=== PATIENT | female | born 1950 | race African-American/Black ===

== ENCOUNTER 2025-04-08 14:57 | Outpatient (AMB) | payer MEDICARE, MEDICAID, SELFPAY ==
--- NOTE | 2025-04-08 15:06 | A.PHYSOV_ITS ---
Vital Signs 04/08/25 15:07 Height 5 ft 2 in Weight 194 lb BMI 35.5 Intake Visit Reasons: eval for left hip injection Intake Note: Patient is a 74 year old female in office today for a left hip injection evaluation. Bankruptcy Assistant Required: No Allergies atorvastatin (From Lipitor) Allergy (Unknown, Verified 04/08/25 15:08) Unknown ezetimibe (From Zetia) Allergy (Unknown, Verified 04/08/25 15:08) Unknown naproxen (From Naprosyn) Allergy (Unknown, Verified 04/08/25 15:08) Unknown simvastatin Allergy (Unknown, Verified 04/08/25 15:08) Unknown HPI Comments Details: History of Present Illness The patient is a 74 year old female presenting with right hip pain. She has a history of a right hip replacement. The current pain began suddenly and is located in her left groin, radiating to the middle of her back and down her leg. She states the pain feels like it is coming from the hip, not sciatica. The pain has been severe enough to cause her to cry and feel aggravated, and she notes it was particularly difficult over Thanksgiving. Past surgical history is also significant for back surgery, after which she had a sudden onset of shock-like pain prior to another procedure. She denies any history of diabetes. She has a pain level today of 7/10. Pain Description - Onset: The pain began suddenly. - Location: The pain is in the right groin. - Radiation: The pain radiates to the middle of the back and down the leg. - Quality: The patient believes it is a hip-related pain, not sciatica. - Severity: The patient reports being in a lot of pain, to the point of crying. - Exacerbating Factors: Pain is worsened with passive movement of the hip joint. - Associated Symptoms: The pain causes her to become aggravated. FORMERLY [facility], [facility]1983 Medical History (Updated 04/08/25 @ 15:20 by MARI Ramirez) Chronic pain syndrome Surgical History History of knee replacement History of hip replacement History of carpal tunnel surgery History of History of back surgery Social History Alcohol intake: current Alcohol intake frequency: does not drink Patient Tobacco Use Status: Never used Tobacco Use of substances other than those prescribed or required for medical reasons: No service: No Review of Systems Narrative Review of Systems - Musculoskeletal: Reports sudden onset of severe right groin pain which radiates to the mid-back and down the leg. - Endocrine: Denies diabetes. - Psychological: Reports feeling aggravated and distressed from her pain. Physical Exam Exam Exam: Physical Exam Lumbar Spine: Examination of the lumbar spine, there is no visible swelling or deformity. She is tender to lower left lumbar facets. She is otherwise non tender. She has limited range of motion and extension. Special Tests: Lhermittes sign was negative Heel Toe walk is normal Left straight leg raise: Negative Right straight leg raise: Negative Special tests Tiffanie test is negative Ganslen's test is negative SI Joint compression test negative Mera test negative Piriformis stretch is negative Lower Extremities: She has limited range of motion of her left hip and external rotation and abduction. Her pain is reproducible with hip range of motion. Neuro: Sensation: Intact to lower extremities bilaterally Strength L2 (Psoas): 5/5 on the left and 5/5 on the right. L3 (Quads): 5/5 on the left and 5/5 on the right. L4 (Ant tibialis): 5/5 on the left and 5/5 on the right. L5 (EHL) 5/5 on the left and 5/5 on the right. S1 (Gastroc): 5/5 on the left and 5/5 on the right. DTR L4: (Patellar) Left 1 Right 1 S1: (Achilles) Left 1 Right 1 Babinski Downgoing No pathologic clonus. No involuntary movement. Vital Signs: BMI result Body Mass Index 35.5 Assessment & Plan Assessment & Plan (1) Osteoarthritis of left hip: Code(s): M16.12 - Unilateral primary osteoarthritis, left hip Category: Medical Qualifiers: Osteoarthritis type: primary Qualified Code(s): M16.12 - Unilateral primary osteoarthritis, left hip Plan Pain Management - Affect: The patient reports feeling aggravated and was crying due to the severity of the pain. - Activities of Daily Living: The patient reports her pain was severe through the . Plan Patient was informed and verbally consented to the use of an ambient scribe for clinic note documentation during this visit. 1. Left Hip Pain The patient presents with severe right hip pain, which is reproducible on physical exam with passive movement, localizing to the groin. While sciatica is a consideration, the current clinical picture is more consistent with hip joint arthritis. An x-ray of the left hip will be ordered for today to confirm the presence of arthritis, which will also facilitate insurance approval for an injection. A prescription for prednisone will be sent to her pharmacy to decrease inflammation and manage her pain until further intervention is possible. A left hip injection will be ordered to be performed by Dr. Hook, and the patient was advised this process could take one to two weeks for scheduling and insurance approval. Discussion Notes I explained to the patient that her symptoms, particularly the groin pain reproduced on exam, are highly suggestive of a hip joint issue like arthritis. I advised that we would order an x-ray of the hip for today to confirm this diagnosis and help with insurance authorization for an injection. To provide some relief in the interim, I recommended a course of prednisone to reduce inflammation, and she was agreeable. I informed her that I would place an order for a right hip injection with Dr. Lyons, but it would likely take a week or two to get scheduled due to insurance and scheduling logistics, which she understood. Patient Instructions - Please go to a [facility] facility, such as [facility] on [facility] or the [facility], to have an x-ray of your right hip taken today. - A prescription for prednisone, a steroid to help reduce swelling and pain, will be sent to your pharmacy. - We are ordering a right hip injection for you. - Please be aware that scheduling the injection can take 1-2 weeks as we need to get approval from your insurance. Orders: Orders XR hip LT min 2V Today M16.10 - Unilateral primary osteoarthritis, unspecified hip Medications: New prednisone 3 tabs po for 3 days, 2 tabs po for 3 days, 1 tab po for 3 days 20 mg PO DAILY 18 tabs 0RF 9 days Coding Level of Care Code Tele Est Pt Level 4 (14671) Diagnoses Primary osteoarthritis of left hip M16.12 Osteoarthritis type: primary
[2025-04-08 15:07] VITALS: BMI 35.5
--- OUTSIDE RECORDS SUMMARY | 2025-04-08 15:53 | XMS_ITS | Encounter Summary ---
Author Organization [facility] [place] [address] Care Team Providers Care Superintendent Marine Name Role Phone Anastasia Yost MD Primary Care Provider [phone] Encounter Details Date Type Department Care Team (Latest Contact Info) Description 04/08/2025 3:53 PM [facility] Hospital Encounter [facility] Xray [address] [place] [address] Unilateral primary osteoarthritis, unspecified hip Social History Tobacco Use Types Packs/Day Years Used Date Smoking Tobacco: Never Smokeless Tobacco: Never Alcohol Use Standard Drinks/Week Comments No 0 (1 standard drink = 0.6 oz pur e alcohol) Housing Instability Answer Date Recorde d Are you worried that in the next 2 months you may not have stable housing? No 11/27/2024 Food Access & Nutrition Answer Date Rec orded Do you have access to a vari ety of food including fruits and vegetables? Yes 11/27/2024 Access to Healthcare Answer Date Record ed Within the last 3 months, ho w many times did you visit the emergency department for your medical care? 0 11/27/2024 Health Literacy Answer Date Recorded How often do you need to hav e someone help you when you read instructions, pamphlets, or other written material from your doctor or pharmacy? Never 11/27/2024 Caregiver: How often do you need to have someone help you when you read instructions, pamphlets, or other written material from your doctor or pharmacy? Not on file 11/27/2024 Financial Risk Answer Date Recorded How hard is it for you to pa y for the very basics like food, housing, medical care, and air conditioning / heating? Not very hard 11/27/2024 Transportation Answer Date Recorded Has the lack of transportati on kept you from meetings, work, or from getting things needed for daily living? No Has the lack of transportati on kept you from medical appointments or from getting medications? No 11/27/2024 Food Risk Answer Date Recorded Within the past 12 months we worried whether our food would run out before we got money to buy more. Never true 11/27/2024 Within the past 12 months th e food we bought just didn't last and we didn't have money to get more. Never true 11/27/2024 Dependent Care Answer Date Recorded Do you need help finding or paying for care for your loved ones. For example, child care team lead or elderly care for an older adult? No 11/27/2024 Education Answer Date Recorded Do you think completing more education or training, like finishing a GED, going to college, or learning a trade, would be helpful for you? N/A 11/27/2024 Employment and Income Answer Date Recor ded During the last four weeks, have you been actively looking for work? No 11/27/2024 Living Situation Answer Date Recorded What is your living situation? Unrecognized valu e 11/27/2024 Comments Unknown Sex and Gender Information Value Date Recorded Sex Assigned at Not on file Legal Sex Female 6:13 AM EST Gender Identity Not on file Sexual Orientation Not on file documented as of this encounter Plan of Treatment Upcoming Encounters Date Type Department Care Team (Late st Contact Info) Description 05/20/2025 10:00 AM EST Office Visit Obstetrics [facility]necology [facility] [place] [address] [place] [address] Jeaneth Medina CNM [address] [place] [phone] 05/30/2025 10:00 AM EST Office Visit Adult Medicine [address] [phone] Krystin Maldonado PA [address] [place] [phone] 07/22/2025 1:15 PM EDT Office Visit Bariatric Surgery - [place] [address] [place] [phone] Ariana Cameron MD [address] [place] [phone] 12/22/2025 1:20 PM EDT Office Visit Gastroenterology - [address] [place] [phone] Bárbara Castillo PA [address] [place] [address] documented as of this encounter Procedures Procedure Name Priority Date/Time Associated Diagnosis Comments XR HIP 2-3 VIEWS LEFT Routine 04/08/2025 3:59 PM EST Unilateral primary osteoarthritis, unspecified hip documented in this encounter Results * XR Hip 2-3 Views Left (04/08/2025 3:59 PM EST) Anatomical Region Laterality Modality Lower Extremities, Hip Left Radiograp hic Imaging 04/08/2025 4:14 PM EST Impressions 04/08/2025 4:16 PM EST Impression: Mild arthritic changes in the left hip, without significant change. Telenette GUERRA ([id number]) -------- FINAL REPORT -------- Dictated By: Tracy Hunter Dictated Date: 04/08/2025 16:14 ET Assigned Physician: Tracy Hunter Reviewed and Electronically Signed By: Tracy Hunter Signed Date: 04/08/2025 16:16 ET Workstation ID: [id number] Transcribed By: Self Edit Transcribed Date: 04/08/2025 16:14 ET Narrative 04/08/2025 4:16 PM EST History: Left hip pain. No known trauma. Comparison: Right hip series 02/06/21 Findings: An AP view of the pelvis to include both hips and AP and frog-leg lateral views of the left hip are submitted. There is mild loss of cartilage space in the left hip, with minimal osteophyte formation along the base of the femoral head, without significant change. No fracture or osseous destructive lesion is identified. A right total hip prosthesis is partially imaged, new from the previous study. The pelvic bones are intact. The sacroiliac joints are well-maintained. Discectomy and fusion sequela are noted in the lower lumbar spine, with stable appearance of the fusion hardware. Procedure Note Tracy Hunter MD - 04/08/2025 History: Left hip pain. No known trauma. Comparison: Right hip series 02/06/21 Findings: An AP view of the pelvis to include both hips and AP and frog-leg lateralviews of the left hip are submitted. There is mild loss of cartilage space in the left hip, with minimalosteophyte formation along the base of the femoral head, withoutsignificant change. No fracture or osseous destructive lesion isidentified. A right total hip prosthesis is partially imaged, new from the previousstudy. The pelvic bones are intact. The sacroiliac joints arewell-maintained. Discectomy and fusion sequela are noted in the lower lumbar spine, withstable appearance of the fusion hardware. IMPRESSION: Impression: Mild arthritic changes in the left hip, without significant change. Dayday GUERRA ([id number]) -------- FINAL REPORT -------- Dictated By: Tracy Hunter Dictated Date: 04/08/2025 16:14 ET Assigned Physician: Tracy Hunter Reviewed and Electronically Signed By: Tracy Hunter Signed Date: 04/08/2025 16:16 ET Workstation ID: [id number] Transcribed By: Self Edit Transcribed Date: 04/08/2025 16:14 ET us Abisai GUERRA IMG XR PROCEDURES Final Result documented in this encounter Visit Diagnoses Diagnosis Unilateral primary osteoarthritis, unspecified hip documented in this encounter Additional Health Concerns Assessment Noted Time PHQ-9 Depression Total Score: 0 11/28/19 25 3:42 PM EDT A fall risk assessment has been complete d for the patient 11/27/2024 3:41 PM EDT documented as of this encounter Care Teams Superintendent Marine Relationship Specialty Start Date End Date Anastasia Yost MD [address] [place] [address] PCP - General 05/03/04 documented as of this encounter
--- OUTSIDE RECORDS SUMMARY | 2025-04-08 21:15 | XMS_ITS | Clinical Summary ---
Author Organization [facility] Prior to 09/28/24 Address [address] [place] [address] Support Name Relationship Address Phone Ochoa Pandey Emergency Contact [address] [place] [address] Care Team Providers Care Band Shover Name Role Phone Anastasia Yost MD Primary Care Provider [phone] Allergies Active Allergy Reactions Criticality Noted Date Comments Atorvastatin 01/10/2014 Other reaction(s): Myalgia and Joint Pain Ezetimibe 10/24/2014 Constipation, myalgias. Lisinopril 09/20/2013 cough Naproxen Itching Low 08/28/2006 Rosuvastatin 12/10/2014 Other reaction(s): Rash/Dermatitis Simvastatin 10/04/2013 Other reaction(s): Myalgia and Joint Pain Medications Medication Sig Dispensed Refills Start Date End Date Status CALCIUM CARBONATE-VITAMIN D PO Take 1,200 mg by mouth 2 (two) times a day. 0 Active Coenzyme Q10 100 MG capsule Take 100 mg by mouth daily. 0 Active DULoxetine (CYMBALTA) DR capsule 60 mg Take 1 capsule (60 mg total) by mouth daily. 0 12/15/2021 Active omeprazole (PriLOSEC) 20 MG capsule Take 1 capsule (20 mg total) by mouth daily. 0 12/22/2021 Active pravastatin (PRAVACHOL) tablet 10 mg Take 1 tablet (10 mg total) by mouth daily. 0 03/08/2022 Active losartan (COZAAR) tablet 50 mg Take 1 tablet (50 mg total) by mouth daily. 0 12/27/2021 Active acetaminophen (TYLENOL) 325 MG tablet Take 1 tablet (325 mg total) by mouth every 6 (six) hours as needed for pain. 0 Active hydrocortisone valerate (WEST-FRANCISCO) 0.2 % ointment Apply 1 application topically daily as needed. 0 Active Multiple Vitamins-Minerals (PRESERVISION AREDS 2 PO) Take 1 tablet by mouth 2 (two) times a day. 0 Active aspirin EC 81 MG EC tablet Take 1 tablet (81 mg total) by mouth 2 (two) times a day after meals. 80 tablet 0 04/22/2022 Active senna-docusate (PERICOLACE) 8.6-50 MG Take 1 tablet by mouth 2 (two) times a day. 12 tablet 0 04/22/2022 Active methocarbamol (ROBAXIN) 750 MG tablet Take 1 tablet (750 mg total) by mouth every 6 (six) hours as needed. 35 tablet 0 05/06/2022 Active oxyCODONE (ROXICODONE) 5 MG immediate release tablet Take 1 tablet (5 mg total) by mouth every 8 (eight) hours as needed. 10 tablet 0 05/17/2022 Active Active Problems No known active problems Immunizations Name Administration Dates Next Due Covid-19 (J&J) 05/11/2021 Family History Medical History Relation Name Comments Heart attack Brother 1 2 X1 Heart attack Brother 2 Early Father Heart attack Mother Heart disease Mother Hypertension Mother Heart attack Sister 1 3 X3 Relation Name Status Comments Brother 1 2 HALF- 65-UN[place] N; 50- [place] Brother 2 Alive Father (Age 57) [place] Mother (Age 65) [place] Sister 1 3 49- [place]; 62- [place]?; 70- [place]? Sister 2 Alive Social History Tobacco Use Types Packs/Day Years Used Date Smoking Tobacco: Never Smokeless Tobacco: Never Tobacco Cessation:Counseling Given: Not Answered Alcohol Use Standard Drinks/Week Comments Never 0 (1 standard drink = 0.6 oz pur e alcohol) Sex and Gender Information Value Date Recorded Sex Assigned at Female 03/31/2022 2:30 PM EST Gender Identity Female 03/31/2022 2:30 PM EST Sexual Orientation Not on file Job Start Date Occupation Industry Not on file Not on file Not on file Last Filed Vital Signs Vital Sign Reading Time Taken Comments Blood Pressure 106/70 04/22/2022 7:44 AM EST Pulse 82 04/22/2022 7:44 AM EST Temperature 36.6 C (97.8 F) 04/22/2022 7:44 AM EST Respiratory Rate 18 04/22/2022 7:44 AM EST Oxygen Saturation 95% 04/22/2022 7:44 AM EST Inhaled Oxygen Concentration - - Weight 87.5 kg (193 lb) 04/21/2022 9:16 AM EST Height 157.5 cm (5' 2 ) 04/21/2022 9:16 AM EST Body Mass Index 35.3 04/21/2022 9:16 AM EST Plan of Treatment Health Maintenance Due Date Last Done Comments Hepatitis C Screening 1950 Depression Screening 1963 BMI Counseling 08/02/1969 Preventative Health Evaluation 08/02/1969 Colon Cancer Screening (Colonoscopy) 08/02/1996 Breast Cancer Screening (Mammogram) 08/02/2001 Fall Risk Assessment 08/02/2016 Osteoporosis Screening (DEXA Scan) 08/02/2016 COVID-19 Vaccine ( season) 2024 09/20/2021, 05/11/2021, 07/06/2020 Influenza Vaccine (#1) 2024 , 01/15/2021, 01/13/2020, Additional history exists RSV Adult > 60+ Yrs or (1 - 1-dose 75+ series) 08/02/2026 DTap / Tdap / Td (3 - Td or Tdap) 12/30/2030 12/30/2020, 08/23/2010, 01/17/2005 Pneumococcal Vaccine Completed 01/16/2019, 10/06/19 17 Shingrix-Zoster Vaccine Completed 03/14/2020, 01/12 Hepatitis B Vaccines Aged Out No long er eligible based on patient's age to complete this topic RSV Ped < 20 months Aged Out No longe r eligible based on patient's age to complete this topic Medical Devices Implanted Type Area Pinking Machine Operator Device Identifier Shelf Expiration Date Model / Serial / Lot Size 5 Standard Tapered Stem Cementless Implanted:Qty: 1 on 04/21/2022 by Elias Hurley MD at [facility] Total Joint Right: Hip [id number] 03/26/2024 / / [id number] [employer] Delta Head 36mm Short -4 Mm Implanted:Qty: 1 on 04/21/2022 by Elias Hurley MD at [facility] and Med Total Joint Right: Hip [id number] 02/10/2027 / / [id number] Hip Shell Andree 3 Taper 50mm Clu Crng-Manu [id number] 129 - [id number] Implanted:Qty: 1 on 04/21/2022 by Elias Hurley MD at [facility] and Med Right: Hip [employer] 02/13/2027 321.03.35 0 / / [id number] Screw Andree 6.5x30mm Stry-Howm [id number] - [id number] Implanted:Qty: 1 on 04/21/2022 by Elias Hurley MD at [facility] and Med Right: Hip [employer] [id number] 03/07/2027 321.030 / / [id number] Screw Andree 6.5x20mm Crng-Manu [id number] - [id number] Implanted:Qty: 1 on 04/21/2022 by Elias Hurley MD at [facility] and Med Right: Hip [employer] [id number] 03/08/2027 321.020 / / [id number] Andree Liner Ecima 36mm Neutral Offset Taper Size 3 Implanted:Qty: 1 on 04/21/2022 by Elias Hurley MD at [facility] and Med Right: Hip [employer] 02/24/2027 322.03.63 6 / / [id number] Advance Directives For more information, please contact: [phone] Latest Code Status on File Code Status Date Activated Date Inactivated Comments Full Code 04/21/2022 10:49 AM 04/22/2022 6:00 PM Th is code status was ascertained in the following way: discussion with patient . Code Status History Code Status Date Activated Date Inactivated Comments Full Code 04/21/2022 9:30 AM 04/21/2022 10:49 AM Th is code status was ascertained in the following way: discussion with patient . Care Teams Band Shover Relationship Specialty Start Date End Date Anastaisa Yost MD PCP - General Internal Medicine 03/11/22
--- OUTSIDE RECORDS SUMMARY | 2025-04-08 21:15 | XMS_ITS | Clinical Summary ---
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 Lisinopril 09/20/2013 cough Naproxen Itching Low 08/28/2006 Rosuvastatin Rash 12/10/2014 Other reaction(s): Rash/Dermatitis Simvastatin Muscular Issues 10/04/2013 Other reaction(s): Myalgia and Joint Pain Medications aspirin 81 mg chewable tablet Chew 1 tablet (81 mg total) 1 (one) time each day. Active DULoxetine (CYMBALTA) [address] capsule Take 1 capsule (60 mg total) by mouth 1 (one) time each day. 0 Active coenzyme Q-10 100 mg capsule Take by mouth. Active calcium carb/vit D3/minerals (CALCIUM-VITAMIN D ORAL) Take 1,200 mg by mouth. Active omeprazole (PriLOSEC) [address] capsule Take 1 capsule (20 mg total) by mouth 2 (two) times a day before meals. 180 each 3 5 06/19/19 26 Active pravastatin (PRAVACHOL) 10 mg tablet Take 1 tablet (10 mg total) by mouth at bedtime. 90 tablet 1 5 Active hydrocortisone valerate (WEST-FRANCISCO) 0.2 % ointment Apply thin layer to webspaces QD PRN 45 g 2 5 Active losartan (COZAAR) 50 mg tablet Take 1 tablet (50 mg total) by mouth at bedtime. 90 tablet 1 5 Active tirzepatide, weight loss, (Zepbound) 2.5 mg/0.5 mL injectionIndicat ions:Class 2 obesity due to excess calories with body mass index (BMI) of 37.0 to 37.9 in adult, unspecified whether serious comorbidity present Inject 0.5 mL (2.5 mg total) under the skin every 7 (seven) days for 4 doses. 2 mL 5 03/14/20 25 Active Problems Problem Noted Date Diagnosed Date Hyperparathyroidism 05/31/2024 Assessment & Plan (11/27/2024 4:33 PM EDT): Orders: Basic metabolic panel; Future Ambulatory referral to Endocrinology; Future H/O iron deficiency anemia 02/13/2024 History of hip replacement 05/12/2022 Overview (07/09/2023): 04/21 right THR Severe obesity (BMI 35.0-39.9) with comorbidity 07/17/2019 Assessment & Plan (11/27/2024 4:33 PM EDT): Pure hypercholesterolemia 09/28/2018 Assessment & Plan (11/27/2024 4:33 PM EDT): Osteoporosis 08/15/2017 Overview (10/18/2024): 07/2017: T-score spine (-1.0); hip (-1.7); FRAX 4% 07/2020: T-score spine (-1.4); hip (-2.4); FRAX 5.4% 11/2022: T-score spine (-0.2); hip (-2.8) Assessment & Plan (11/27/2024 4:33 PM EDT): S/P total knee replacement 12/17/2015 Overview (10/18/2024): 11/13 right, left 2020 HTN (hypertension) 04/08/2013 Assessment & Plan (11/27/2024 4:33 PM EDT): Glaucoma 08/29/2011 Osteoarthrosis, localized, p rimary, involving lower leg, unspecified laterality 09/11/2009 Onychomycosis 08/31/2009 Spinal stenosis, lumbar sreekanth on, without neurogenic claudication 03/30/2009 Overview (10/18/2024): L4-5 moderate Esophageal reflux 06/29/2005 Assessment & Plan (11/27/2024 4:33 PM EDT): Nocturnal leg cramps 06/29/2005 Encounters Date Type Department Care Team Description 04/08/2025 3:53 PM EST Hospital Encounter [facility] Xray [address] [place] [address] Unilateral primary osteoarthritis, unspecified hip 03/01/2025 9:45 AM EDT Office Visit Walk-In Clinic - [facility] [address] [place] [phone] Yunior Craft NP Vaginal itching (Primary Dx); Hypoglycemia 02/20/2025 9:00 AM EDT Office Visit Bariatric Surgery [facility] [address] [facility] [address] [place] [address] Ariana Cameron MD Class 2 obesity due to excess calories with body mass index (BMI) of 37.0 to 37.9 in adult, unspecified whether serious comorbidity present (Primary Dx) 01/14/2025 Telephone Adult Medicine [address] [address] Anastasia Yost MD from Last 3 Months Immunizations Immunization Administration Dates Next Due COVID-19 (Moderna/Spikevax) 12yo and older 02/14/2023 Influenza trivalent, 0.5mL ( Fluzone High-dose) 65yo and older 01/17/2022,01/15/2021,01/13/2020,01/16,01/23/2018,02/01/2014,03/04/2013 ,02/27/2012,02/23/2011,02/22/2010,12/31,04/10/2007 Influenza trivalent, with pr eservative (Fluzone; Afluria) 6mo and older 01/07/2015,02/01/2014,03/04/2013,02/26,02/23/2011,02/22/2010,01/25/2008 ,04/10/2007 Influenza, Unspecified 01/30/2023,02/23/2016 KIRIT/RootsRated SARS-CoV-2 COVID -19, vector-nr, rS-Ad26, preservative free 05/11/2021,07/06/2020 Pfizer (ages 12 & older) Biv alent, COVID-19 02/10/2022 Pfizer SARS-CoV-2 COVID-19, mRNA, LNP-S, preservative free 09/20/2021 Pneumococcal conjugate 13 va lent (Prevnar 13, PCV13) 2mo and older 10/05/2016 Pneumococcal polysaccharide 23 valent (Pneumovax 23) 2yo and older 01/16/2019 RSV, bivalent, protein subun it RSVpreF, 0.5mL, Preservative Free (Arexvy) 50yo and older 02/14/2023 TD, Adsorbed, Preservative Free 12/30/2020 Td Tetanus diptheria (Tdvax) 7yo and older 12/30/2020,01/17/2005,01/17/2005 Tdap Tetanus diptheria acell ular pertussis (Boostrix; Adacel) 7yo and older 08/23/2010 Zoster Live 08/31/2011 Zoster recombinant (Shingrix ) 19yo and older 03/14/2020,01/13/2020 Surgical History Surgery Date Site/Laterality Comments SECTION BUNIONECTOMY KNEE ARTHROSCOPY COLONOSCOPY 05/2005 COLONOSCOPY 06/2015 diverticulosis, hemorrhoids BREAST REDUCTION 2006 BACK SURGERY 09/2020 : L3-4, L4-5 decompression HIP ARTHROPLASTY Right TOTAL KNEE ARTHROPLASTY Right Medical History Medical History Date Comments Sleep related leg cramps 06/29/2005 Morbid obesity ([facility] V24, [facility] V28) 2005 Pure hypercholesterolemia 04/28/2006 Esophageal reflux 06/29/2005 Spinal stenosis, lumbar sreekanth on, without neurogenic claudication 03/30/2009 Glaucoma 08/29/2011 HTN (hypertension) 04/08/2013 S/P total knee replacement 12/17/2015 Osteopenia 08/15/201708/16 T score spi ne -1.0 hip -1.7 FRAX score 4% 10 year fracture risk Onychomycosis 08/31/2009 Family History Medical History Relation Name Comments Glaucoma Aunt 1 Heart attack Aunt 2 paternal Other: stabbed Father Heart attack Mother Heart attack Other 1 2 brothers Other: embolic disease Other 2 2 aun ts, 1 niece Breast cancer Other 3 cousin Heart attack Sister 1 Other: pulmonary embolus Sister 2 d Colon cancer Neg Hx Ovarian cancer Neg Hx Relation Name Status Comments Aunt 1 Aunt 2 Father Maternal Grandfather Maternal Grandmother Mother Other 1 Other 2 Other 3 cousin Alive Paternal Grandfather Paternal Grandmother Sister 1 Sister 2 Social History Tobacco Use Types Packs/Day Years Used Date Smoking Tobacco: Never Smokeless Tobacco: Never Tobacco Cessation:Counseling Given: Not Answered Alcohol Use Standard Drinks/Week Comments No 0 [...] for your loved ones. For example, child support agent or elderly care for an older adult? [...] on file Sexual Orientation Not on file Obstetrics History Para Term AB IAB SAB Ectopic Multiple Livin g Live Births 2 2 2 2 Date Outcome GA Total Labor Labor/2nd/3rd Weight Sex Type Anes PTL Danyelle A1 A5 Name Clin Term Term Last Filed Vital Signs Vital Sign Reading Time Taken Comments Blood Pressure 101/72 03/01/2025 9:31 AM EDT Pulse 84 03/01/2025 9:31 AM EDT Temperature 36.7 C (98 F) 03/01/2025 9:31 AM EDT Respiratory Rate 16 03/01/2025 9:31 AM EDT Oxygen Saturation 98% 03/01/2025 9:31 AM EDT Inhaled Oxygen Concentration - - Weight 93.9 kg (207 lb) 02/20/2025 9:29 AM EDT Height 157.5 cm (5' 2 ) 02/20/2025 9:29 AM EDT Body Mass Index 37.86 02/20/2025 9:29 AM EDT Plan of Treatment Upcoming Encounters Date Type Department Care Team (Late st Contact Info) Description 05/20/2025 10:00 AM EST Office Visit Obstetrics and Gynecology - [facility] [address] [place] [address] Jeaneth Medina CNM [address] [place] [phone] 05/30/2025 10:00 AM EST Office Visit Adult Medicine [facility] [address] [place] [address] Krystin Maldonado PA [address] [place], [place] 07/22/2025 1:15 PM EDT Office Visit Bariatric Surgery - [place] [facility] [address] [place] [phone] Ariana Cameron MD [address] [place] [phone] 12/22/2025 1:20 PM EDT Office Visit Gastroenterology - [facility] [address] [facility] [address] [place] [phone] Bárbara Castillo PA [address] [facility] [address] [place] [address] Health Maintenance Due Date Last Done Comments Osteoporosis Screening (Bone Density Screening) 01/03/2025 01/03/2023, 08/06/2020, 08/15/2017 COVID-19 Vaccine ( season) 2025 01/20/2025, 01/25/2024, 02/14/2023, Additional history exists Falls Risk Assessment 11/27/2025 11/27/2024 , 11/16/2023, 11/10/2022 Hypertension/CHF/CAD Annual BMP Blood Test 11/27/2025 11/27/2024, 04/26/2024, 11/16/2023, Additional history exists Medicare Annual Wellness Visit 11/27/2025 11/27/2024, 11/16/2023 Social Influencers of Health Screening 11/27/2025 11/27/2024 Breast Cancer Screening 08/31/2026 09/01/19, 08/12/2023, 07/28/2022, Additional history exists Colorectal Cancer Screening: Colonoscopy 08/07/2028 08/08/2023, 07/14/2015 Cholesterol Screening (Lipid Panel) 04/26/2029 04/26/2024, 11/10/2023, 11/11/2022 DTaP,Tdap,and Td Vaccines (6 - Td or Tdap) 12/30/2030 12/30/2020, 12/30/2020, 08/23/2010, Additional history exists Hepatitis C Screening Addressed 03/04/2013 Overri dden with the intention of not completing the topic Pneumococcal Vaccine: 50+ Years Completed 01/16/2019, 10/05/2016 Zoster Vaccines Completed 03/14/2020, 12/30, 08/31/2011 RSV Immunization Adult Patients Completed 02/14/2023 Depression Screening Completed 11/27/2024 Influenza Vaccine Completed 01/20/2025, , 01/17/2022, Additional history exists HIB Vaccines Aged Out No longer eligi ble based on patient's age to complete this topic HPV Vaccines Aged Out No longer eligi ble based on patient's age to complete this topic Hepatitis A Vaccines Aged Out No long er eligible based on patient's age to complete this topic Hepatitis B Vaccines Aged Out No long er eligible based on patient's age to complete this topic IPV Vaccines Aged Out No longer eligi ble based on patient's age to complete this topic MMR Vaccines Aged Out No longer eligi ble based on patient's age to complete this topic Meningococcal ACWY Vaccine Aged Out N o longer eligible based on patient's age to complete this topic Meningococcal B Vaccine Aged Out No l onger eligible based on patient's age to complete this topic RSV Immunization Patients Under 20 months Aged Out No longer eligible based on patient's age to complete this topic Varicella Vaccines Aged Out No longer eligible based on patient's age to complete this topic Medical Devices Implanted Type Area Sales Engineer Device Identifier Shelf Expiration Date Model / Serial / Lot Size 5 Standard Tapered Stem Cementless Implanted:Qty: 1 on 04/21/2022 by Elias Hurley MD Joints Right: Hip [id number] 03/26/2024 / / [id number] Biolox Delta Head 36mm Short -4 Mm Implanted:Qty: 1 on 04/21/2022 by Elias Hurley MD Joints Right: Hip [id number] 02/10/2027 / / [id number] Hip Shell Andree 3 Taper 50mm Clu Crng-Manu [id number] Implanted:Qty: 1 on 04/21/2022 by Elias Hurley MD Right: Hip [employer] 02/13/2027 321.03.35 0 / / [id number] Screw Andree 6.5x30mm Stry-How [id number] Implanted:Qty: 1 on 04/21/2022 by Elias Hurley MD Right: Hip [employer] [id number] 03/07/2027 321.030 / / [id number] Screw Andree 6.5x20mm Crng-Manu [id number] Implanted:Qty: 1 on 04/21/2022 by Elias Hurley MD Right: Hip [employer] [id number] 03/08/2027 321.020 / / [id number] Andree Liner Ecima 36mm Neutral Offset Taper Size 3 Implanted:Qty: 1 on 04/21/2022 by Elias Hurley MD Right: Hip [employer] 02/24/2027 322.03.63 6 / / [id number] Procedures Procedure Name Priority Date/Time Associated Diagnosis Comments XR HIP 2-3 VIEWS LEFT Routine 04/08/2025 3:59 PM EST Unilateral primary osteoarthritis, unspecified hip POC GLUCOSE Routine 03/01/2025 10:30 AM EDT Hypoglycemia VAGINITIS PATHOGENS BY PCR Routine 03/01/2025 10:09 AM EDT Vaginal itching BASIC METABOLIC PANEL Routine 11/27/2024 4:12 PM EDT Hyperparathyroidism (CMS/HCC V24) MG MAMMO DIGITAL SCREENING W GIRISH BILAT Routine 08/31/2024 12:01 PM EDT Encounter for screening mammogram for breast cancer LIPID PANEL WITH REFLEX TO DIRECT LDL Routine 04/26/2024 2:59 PM EST Pure hypercholesterolemia DXA BONE DENSITY STUDY 1+ SITS AXIAL SKEL Routine 01/03/2023 10:08 AM EDT Other specified disorders of bone density and structure, unspecified site from Last 3 Months or Most Recently Relevant to Health Maintenance Results * XR Hip 2-3 Views Left (04/08/2025 3:59 PM EST) Anatomical Region Laterality Modality Lower Extremities, Hip Left Radiograp hic Imaging 04/08/2025 4:14 PM EST Impressions 04/08/2025 4:16 PM EST Impression: Mild arthritic changes in the left hip, without significant change. Telerad MARI ([id number]) -------- FINAL REPORT -------- Dictated By: Tracy Hunter Dictated Date: 04/08/2025 16:14 ET Assigned Physician: Tracy Hunter Reviewed and Electronically Signed By: Tracy Hunter Signed Date: 04/08/2025 16:16 ET Workstation ID: [id number] Transcribed By: Self Edit Transcribed Date: 04/08/2025 [...] left hip, without significant change. Dayday GUERRA ([id number]) -------- FINAL REPORT -------- Dictated By: Tracy Hunter Dictated Date: 04/08/2025 16:14 ET Assigned Physician: Tracy Hunter Reviewed and Electronically Signed By: Tracy Hunter Signed Date: 04/08/2025 16:16 ET Workstation ID: [id number] Transcribed By: Self Edit Transcribed Date: 04/08/2025 16:14 ET Abisai GUERRA IMG XR PROCEDURES Final Result * POC glucose manually resulted (03/01/2025 10:30 AM EDT) Glucose POC 84 75 - 100 mg/dL Blood Capillary blood specimen / Unknown 03/01/2025 10:30 AM EDT Yunior Craft NP POINT OF CARE TEST ENTER/EDIT ORDERABLES Final Result * Vaginitis pathogens molecular study (03/01/2025 10:09 AM EDT) Trichomonas vaginalis Negative Negative 03/02/2025 11:43 AM EST [facility] Gardnerella vaginalis Negative Negative 03/02/2025 11:43 AM [facility] Araceli Species Negative Negative 11:43 AM [facility] Swab Vaginal structure / Unknown Non-blood Collection / Unknown 03/01/2025 10:09 AM EDT 03/01/2025 10:09 AM EDT us Yunior Craft NP LAB MICROBIOLOGY - GENERAL OR DERABLES Final Result [facility] [address] [place] [address], * (ABNORMAL) Basic metabolic panel (11/27/2024 4:12 PM EDT) Sodium 139 133 - 145 mmol/L LAB CHEMISTRY METHOD 11/27/2024 6:21 PM [facility] Potassium 4.4 3.5 - 5.5 mmol/L LAB CHEMISTRY METHOD 11/27/2024 6:21 PM [facility] Chloride 107 96 - 110 mmol/L LAB CHEMISTRY METHOD 11/27/2024 6:21 PM [facility] CO2 29 21 - 32 mmol/L LAB CHEMISTRY METHOD 11/27/2024 6:21 PM [facility] Anion Gap 3 3 - 11 LAB CHEMISTRY METHOD 11/27/2024 6:21 PM [facility] Glucose 90 70 - 100 mg/dL LAB CHEMISTRY METHOD 11/27/2024 6:21 PM [facility] BUN 16 5 - 25 mg/dL LAB CHEMISTRY METHOD 11/27/2024 6:21 PM [facility] Creatinine 0.77 0.50 - 1.10 mg/dL LAB CHEMISTRY METHOD 11/27/2024 6:21 PM EDT [facility] eGFR 82 >=60 mL/min/1. 73m2 LAB CHEMISTRY METHOD 11/27/2024 6:21 PM EDT [facility] Comment:Calculation based on the Chronic Kidney Disease Epidemiology Collaboration (CKD-EPI) equation refit without adjustment for race. BUN/Creatinine Ratio 20.8 LAB CHEMISTRY METHOD 11/27/2024 6:21 PM EDT [facility] Calcium 10.9(H) 8.5 - 10.5 mg/dL LAB CHEMISTRY METHOD 11/27/2024 6:21 PM EDT [facility] Blood Venous blood specimen / Unknown Venipuncture / Unknown 11/27/2024 4:12 PM EDT 11/27/2024 4:12 PM EDT us Anastasia Yost MD LAB BLOOD ORDERABLES Final Resul t [facility] [address] [place] [address], [place] [phone] * MG Mammo Digital Screening w Girish bilat (08/31/2024 12:01 PM EDT) Anatomical Region Laterality Modality Breast Bilateral Mammography 08/31/2024 5:12 PM EDT Impressions 08/31/2024 5:14 PM EDT No mammographic evidence for malignancy. BI-RADS CATEGORY: 1 - NEGATIVE RECOMMENDATION: Screening bilateral mammogram is recommended in 1 year. Mammo Location: [facility], [address] [place] [address], [id number], . -------- FINAL REPORT -------- Dictated By: Dolores Shaw Dictated Date: 08/31/2024 17:12 ET Assigned Physician: Dolores Shaw Reviewed and Electronically Signed By: Dolores Shaw Signed Date: 08/31/2024 17:14 ET Workstation ID: [id number] Transcribed By: Self Edit Transcribed Date: 08/31/2024 17:12 ET Narrative 08/31/2024 5:14 PM EDT Bilateral screening mammogram. CLINICAL: 74 years old, Female, routine annual exam. COMPARISON: Prior mammograms, latest from 08/12/2023. TECHNIQUE: Bilateral MLO and CC views were obtained digitally with 2-D C views and 3-D mammogram (digital breast tomosynthesis). Computer-aided detection was utilized in evaluation of this exam (CAD). FINDINGS: There is no evidence of suspicious mass or architectural distortion. No worrisome calcifications are evident. There has been no significant change from prior exam(s). BREAST DENSITY: B - There are scattered areas of fibroglandular density. Procedure Note Dolores Shaw MD - 08/31/2024 Bilateral screening mammogram. CLINICAL: 74 years old, Female, routine annual exam. COMPARISON: Prior mammograms, latest from 08/12/2023. TECHNIQUE: Bilateral MLO and CC views were obtained digitally with 2-D Cviews and 3-D mammogram (digital breast tomosynthesis). Computer-aideddetection was utilized in evaluation of this exam (CAD). FINDINGS: There is no evidence of suspicious mass or architectural distortion. Noworrisome calcifications are evident. There has been no significantchange from prior exam(s). BREAST DENSITY: B - There are scattered areas of fibroglandular density. IMPRESSION: No mammographic evidence for malignancy. BI-RADS CATEGORY: 1 - NEGATIVE RECOMMENDATION: Screening bilateral mammogram is recommended in 1 year. Mammo Location: [facility], [address] [place] [address], [id number], . -------- FINAL REPORT -------- Dictated By: Dolores Shaw Dictated Date: 08/31/2024 17:12 ET Assigned Physician: Dolores Shaw Reviewed and Electronically Signed By: Dolores Shaw Signed Date: 08/31/2024 17:14 ET Workstation ID: [id number] Transcribed By: Self Edit Transcribed Date: 08/31/2024 17:12 ET us Anastasia Yost MD IMG BI PROCEDURES Final Result * (ABNORMAL) Lipid panel with reflex to direct LDL (04/26/2024 2:59 PM EST) Cholesterol 199 0 - 200 mg/dL LAB CHEMISTRY METHOD 04/26/2024 6:40 PM EST [facility] Triglycerides 122 0 - 150 mg/dL LAB CHEMISTRY METHOD 04/26/2024 6:40 PM EST [facility] HDL 57 >=40 mg/dL LAB CHEMISTRY METHOD 04/26/2024 6:40 PM EST [facility] LDL Calculated 118(H) 0 - 100 mg/dL LAB CHEMISTRY METHOD 04/26/2024 6:40 PM EST [facility] VLDL Cholesterol Fausto 24.4 mg/dL LAB CHEMISTRY METHOD 04/26/2024 6:40 PM EST [facility] Non HDL Chol. (LDL+VLDL) 142 <145 mg/dL LAB CHEMISTRY METHOD 04/26/2024 6:40 PM EST [facility] Chol/HDL Ratio 3.5 0.0 - 4.4 LAB CHEMISTRY METHOD 04/26/2024 6:40 PM EST [facility] Blood Venous blood specimen / Unknown Venipuncture / Unknown 04/26/2024 2:59 PM EST 04/26/2024 2:59 PM EST Krystin GUERRA LAB BLOOD ORDERABLES Final Re sult [facility] [address] [place] [address], * DXA BONE DENSITY STUDY 1+ SITS AXIAL SKEL (01/03/2023 10:08 AM EDT) Anatomical Region Laterality Modality Bone Densitometr y 11/10/2022 1:30 PM EDT Narrative 01/03/2023 5:53 PM EDT BONE DENSITY SCAN (DEXA): FINDINGS: Lumbar Spine L1 and L2, L3 and L4 excluded due to presence of fusion hardware. T-score is -0.2. (SD relative to 20-29 y/o adult) Z-score is 1.1. (SD relative to age matched peers) This is considered normal by WHO criteria. Left Hip T-score is -2.8. Z-score is -1.4. This is considered osteoporosis by WHO criteria. Left Forearm T-score is -0.9. Z-score is 1.3. This is considered normal by WHO criteria. Comparison exam(s): 08/06/2020. 5.9% loss of left hip bone mineral density which is statistically significant at the 95% confidence level. No statistically significant change in lumbar spine bone mineral density. Lateral survey view of the thoracolumbar spine shows no significant compression deformities. IMPRESSION: IMPRESSION: Osteoporosis by WHO criteria. [facility] Department of Internal Medicine recommends using National Osteoporosis Foundation (NOF) guidelines in treatment decisions related to osteoporosis. NOF guidelines suggest considering treatment for postmenopausal women and men aged 50 or older presenting with the following: History of hip or vertebral fracture. T-score = -2.5 (DXA) at the femoral neck, total hip, or spine, after appropriate evaluation to exclude secondary causes. Low bone mass (T-score between -1.0 and -2.5 at the femoral neck or spine) AND a 10-year probability of a hip fracture = 3% OR a 10-year probability of a major osteoporosis-related fracture = 20% based on the [place]-adapted WHO algorithm Please note that all treatment decisions require clinical judgment and consideration of individual patient factors, including patient preferences, co-morbidities, previous drug use, risk factors not captured in the FRAX model (e.g., frailty, falls, vitamin D deficiency, increased bone turnover, interval significant decline in bone density) and possible under- or over-estimation of fracture risk by FRAX. Optional alternative screening schedule based on dave Lugo., [facility] May 19, 2011 for patients with osteopenia (based on hip BMD T-score) is as follows: * advanced osteopenia (T scores -2.00 to -2.49), BMD testing every year * moderate osteopenia (T scores -1.50 to -1.99), BMD testing every 5 years mild osteopenia or normal BMD (T scores -1.50 and higher), BMD testing every 15 years Procedure Note Neelima Tran MD - 06/06/2023 BONE DENSITY SCAN (DEXA): FINDINGS: Lumbar Spine L1 and L2, L3 and L4 excluded due to presence of fusionhardware. T-score is -0.2. (SD relative to 20-29 y/o adult) Z-score is 1.1. (SD relative to age matched peers) This is considered normal by WHO criteria. Left Hip T-score is -2.8. Z-score is -1.4. This is considered osteoporosis by WHO criteria. Left Forearm T-score is -0.9. Z-score is 1.3. This is considered normal by WHO criteria. Comparison exam(s): 08/06/2020. 5.9% loss of left hip bone mineraldensity which is statistically significant at the 95% confidence level. No statisticallysignificant change in lumbar spine bone mineral density. Lateral survey view of the thoracolumbar spine shows no significantcompression deformities. IMPRESSION: IMPRESSION: Osteoporosis by WHO criteria. [facility] Department of Internal Medicine recommendsusing National Osteoporosis Foundation (NOF) guidelines in treatment decisions related toosteoporosis. NOF guidelines suggest considering treatment for postmenopausal women and menaged 50 or older presenting with the following: History of hip or vertebral fracture. T-score = -2.5 (DXA) at the femoral neck, total hip, or spine, afterappropriate evaluation to exclude secondary causes. Low bone mass (T-score between -1.0 and -2.5 at the femoral neck or spine)AND a 10-year probability of a hip fracture = 3% OR a 10-year probability of a majorosteoporosis-related fracture = 20% based on the [place]-adapted WHO algorithm Please note that all treatment decisions require clinical judgment andconsideration of individual patient factors, including patient preferences, co- morbidities,previous drug use, risk factors not captured in the FRAX model (e.g., frailty, falls, vitaminD deficiency, increased bone turnover, interval significant decline in bone density) andpossible under- or over-estimation of fracture risk by FRAX. Optional alternative screening schedule based [facility] for patients with [facility]openia (based on hip BMD T-score) is as follows: * advanced osteopenia (T scores -2.00 to -2.49), BMD testing every year * moderate osteopenia (T scores -1.50 to -1.99), BMD testing every 5years mild osteopenia or normal BMD (T scores -1.50 and higher), BMD testingevery 15 years Krystin GUERRA IMG DXA PROCEDURES Final Resu lt from Last 3 Months or Most Recently Relevant to Health Maintenance Insurance [employer] MEDICARE ADVANTAGE MEDICAID - [place] Advance Directives Documents on File Type Date Recorded Patient Commercial Loan Officer Expl anation Health Care Decision (hx) 12/15/2009 AD ORR DIRECTIVE Health Care Decision (hx) 12/15/2009 AD ORR DIRECTIVE Health Care Decision (hx) 12/15/2009 AD ORR DIRECTIVE Health Care Decision (hx) 12/15/2009 AD ORR DIRECTIVE Health Care Decision (hx) 12/15/2009 AD ORR DIRECTIVE Health Care Decision (hx) 12/15/2009 AD ORR DIRECTIVE Health Care Decision (hx) 12/15/2009 AD ORR DIRECTIVE Health Care Decision (hx) 12/15/2009 AD ORR DIRECTIVE Health Care Decision (hx) 12/15/2009 AD ORR DIRECTIVE Health Care Decision (hx) 12/15/2009 AD ORR DIRECTIVE Health Care Decision (hx) 12/15/2009 AD ORR DIRECTIVE Health Care Decision (hx) 12/15/2009 AD ORR DIRECTIVE Health Care Decision (hx) 12/15/2009 AD ORR DIRECTIVE Care Teams Import And Export Clerk Relationship Specialty Start Date End Date Anastasia Yost MD [address] [place] [id number] PCP - General 05/03/04
--- OUTSIDE RECORDS SUMMARY | 2025-04-08 21:15 | XMS_ITS ---
Author Name [facility] Organization Unknown History of Medication Use Medication Directions Dispensed Refills Start Date End Date Stat us amoxicillin 500 mg capsule TAKE 1 CAPSULE BY MOUTH TWICE DAILY FOR 10 DAYS active duloxetine 60 mg capsule,delayed release TAKE 1 CAPSULE BY MOUTH ONCE DAILY active hydrocortisone valerate 0.2 % topical ointment APPLY A THIN LAYER OF OINTMENT TO WEBSPACES/ SKIN FOLDS TWICE DAILY NEEDED active losartan 50 mg tablet TAKE 1 TABLET BY MOUTH AT BEDTIME active methocarbamol 750 mg tablet TAKE 1 TABLET BY MOUTH EVERY 6 HOURS NEEDED active omeprazole 20 mg capsule,delayed release TAKE 1 CAPSULE BY MOUTH ONCE DAILY IN THE MORNING BEFORE BREAKFAST active oxycodone 5 mg tablet TAKE 1 TABLET BY MOUTH EVERY 8 HOURS NEEDED active pravastatin 10 mg tablet TAKE 1 TABLET BY MOUTH AT BEDTIME active tramadol 50 mg tablet TAKE 1 TABLET BY MOUTH EVERY 4 HOURS NEEDED FOR PAIN FOR 7 DAYS active Allergies Allergen Reaction Severity Comment Documented Date Source Statu s NAPROXEN ENS_AONECT [id number] REDUCTASE INHIBITORS ENS_AONECT Encounters Encounter Type Encounter Reason Primary Diagnosis Location Date Ambulatory [facility] 11/30/2023 Ambulatory [facility] 04/14/2023 Ambulatory [facility] 03/29/2023 Ambulatory [facility] 02/27/2023 Ambulatory [facility] 02/20/2023 Ambulatory [facility] 10/27/2022 Ambulatory [facility] 10/07/2022 Ambulatory [facility] 09/02/2022 Ambulatory [facility] 09/02/2022 Care Team Organization Name Specialty Phone Email Start Date End Da te [facility] DAWSON BOOTH Primary Care 03/31/2022
== END 2025-04-08 15:24 | disposition home or self-care (01) ==
LOC: HO.HPHYS 14:57
PROVIDERS: PCP Internal Medicine; Visit Provider Physician Assistant
DX: M16.12 Unilateral primary osteoarthritis, left hip (principal)
CPT/HCPCS: 99214

== ENCOUNTER → 2025-04-08 14:57 | Outpatient (BNVA) | payer MEDICARE, MEDICAID, SELFPAY | PROVIDERS: PCP Internal Medicine; Visit Provider Physician Assistant | DX: M16.12 Unilateral primary osteoarthritis, left hip (principal) | CPT/HCPCS: 99212 ==